=== PATIENT | male | born 1995 | race Caucasian/White ===

== ENCOUNTER 2021-02-18 07:22 | Emergency (ER) | payer OTHER ==
[2021-02-18] MEDS ORDERED: AUGMENTIN 875-1 EACH PO (09:32)
[2021-02-18] MEDS ORDERED: HYDROCODON-ACE1 EAC4 PO (09:32)
== END 2021-02-18 11:02 | disposition home or self-care (01) ==
LOC: ER1 07:22
DX: S61.452A Open bite of left hand, initial encounter (principal); S61.451A Open bite of right hand, initial encounter; S61.552A Open bite of left wrist, initial encounter; F17.200 Nicotine dependence, unspecified, uncomplicated; W54.0XXA Bitten by dog, initial encounter
CPT/HCPCS: 73100; 73130; 99283

== ENCOUNTER → 2021-08-03 | Outpatient (CLI) | payer OTHER ==
[~2021-08-03] MED LIST: AUGMENTIN 875-1 EACH PO; HYDROCODON-ACE1 EAC4 PO
== END ==
LOC: KOH-I 08-01 08:30
DX: S32.409A Unspecified fracture of unspecified acetabulum, initial encounter for closed fracture (principal)
CPT/HCPCS: 72192